=== PATIENT | male | born 1950 | race Caucasian/White ===

== ENCOUNTER 2016-12-20 17:05 | Inpatient (IN) | payer MEDICARE, OTHER ==
[~2016-12-20] VITALS: Ht 182.9 cm; Wt 71.8 kg
[~2016-12-20 17:05] MED LIST: ALBU18HF INH; ASPI-621 PO; ERGO500017 PO; FINA5TAB4 PO; MULT-750 PO; OXYC-229 PO; TAMS-11 PO
[2016-12-20 18:11] LABS: HEMOGLOBIN 13.7 g/dL (13.7-18.0)
[2016-12-20 18:22] LABS: BLOOD UREA NITROGEN 9 mg/dL (7-18)
[2016-12-20] MEDS ORDERED: PERMETHRIN CRM 5%, 60GM TP SCH (19:30)
[2016-12-20] MEDS ORDERED: PERMETHRIN CRM 5%, 60GM ONE (20:20)
[2016-12-20] MEDS ORDERED: LORazepam 2 MG/ML, 1ML IVPush PRN (20:30)
[2016-12-20] MEDS ORDERED: DOCUSATE 100 MG CAPSULE PO PRN (20:30)
[2016-12-20] MEDS ORDERED: LABETALOL 5MG/ML, 20ML IV PRN (20:30)
[2016-12-20] MEDS ORDERED: TRAZODONE 50MG TABLET PO PRN (20:30)
[2016-12-20] MEDS: ENOXAPARIN 40 MG/0.4 ML SQ SCH (20:30)
[2016-12-20] MEDS ORDERED: ACETAMINOPHEN 325 MG TABLET PO PRN (20:30)
[2016-12-20] MEDS ORDERED: POLYETHYLENE GLYCOL 17 GM PACKET PO PRN (20:30)
[2016-12-20] MEDS: NICOTINE 14MG/24 HR PATCH.TD24 TD SCH (20:30)
[2016-12-20] MEDS ORDERED: ONDANSETRON ODT 4 MG PO PRN (20:30)
[2016-12-20] MEDS ORDERED: BISACODYL 10 MG SUPP PR PRN (20:30)
[2016-12-20] MEDS ORDERED: cloniDINE 0.1MG PATCH TD SCH (20:30)
[2016-12-20] MEDS: GABAPENTIN 100 MG CAPSULE PO SCH (21:00)
[2016-12-20] MEDS: VALPROIC ACID 250 MG CAPSULE PO SCH (21:00)
[2016-12-20] MEDS ORDERED: PERMETHRIN CRM 5%, 60GM TP ONE (21:14)
[2016-12-20] MEDS ORDERED: FLU VACC QS2016-17 (36MOS+)UP/PF 0.5 ML IM-VACC ONE (22:30)
[2016-12-20] MEDS ORDERED: PNEUMOCOCCAL 23 VACCINE IM-VACC ONE (22:30)
[2016-12-20] MEDS: SODIUM CHLORIDE 0.9% 1,000 ML IV SCH (22:30)
[2016-12-20] MEDS: POTASSIUM CHLORIDE 20 MEQ, MAGNESIUM SULFATE 2 GM, THIAMINE 100 MG, MVI ADULT 10 ML, FO... IV SCH (23:47)
[2016-12-21 04:00] VITALS: BP 145/77
[2016-12-21] MEDS: SODIUM CHLORIDE 0.9% 1,000 ML IV SCH ×3 (04:03→20:03)
[2016-12-21] MEDS: ASPIRIN 81 MG TABLET EC PO SCH (05:26)
[2016-12-21 06:16] LABS: HEMOGLOBIN 13.9 g/dL (13.7-18.0)
[2016-12-21 06:28] LABS: BLOOD UREA NITROGEN 8 mg/dL (7-18)
[2016-12-21 06:42] LABS: ASPARTATE AMINO TRANSFERASE 18 U/L (15-37)
[2016-12-21 07:11] VITALS: BP 136/75
[2016-12-21] MEDS: FINASTERIDE 5 MG TABLET PO SCH (09:00)
[2016-12-21] MEDS: THIAMINE 100MG TABLET PO SCH (09:00)
[2016-12-21] MEDS: FOLIC ACID 1 MG TABLET PO SCH (09:42)
[2016-12-21] MEDS: GABAPENTIN 100 MG CAPSULE PO SCH ×3 (09:42→21:31)
[2016-12-21] MEDS: MULTIVITAMIN 1 TABLET PO SCH (09:42)
[2016-12-21] MEDS: VALPROIC ACID 250 MG CAPSULE PO SCH ×3 (09:43→21:31)
[2016-12-21] MEDS: TAMSULOSIN 0.4 MG CAP.ER.24H PO SCH (09:43)
[2016-12-21 14:00] VITALS: BP 130/71
[2016-12-21] MEDS: POTASSIUM CHLORIDE 20 MEQ, MAGNESIUM SULFATE 2 GM, THIAMINE 100 MG, MVI ADULT 10 ML, FO... IV SCH (20:03)
[2016-12-21 20:11] VITALS: BP 152/81
[2016-12-21] MEDS ORDERED: EPINEPHRINE SYRINGE 0.1 MG/ML, 10ML ONE (20:16)
[2016-12-21] MEDS ORDERED: CALCIUM CHLORIDE 10%, 10ML SYR ONE (20:16)
[2016-12-21] MEDS: NICOTINE 14MG/24 HR PATCH.TD24 TD SCH (20:30)
[2016-12-21] MEDS ORDERED: CODE BLUE RESPONSE XX ONE (20:30)
[2016-12-21] MEDS: MAGNESIUM OXIDE 400 MG TABLET PO SCH (21:31)
[2016-12-21] MEDS: ENOXAPARIN 40 MG/0.4 ML SQ SCH (21:31)
[2016-12-22 02:32] VITALS: BP 120/65
[2016-12-22] MEDS: SODIUM CHLORIDE 0.9% 1,000 ML IV SCH (04:03)
[2016-12-22] MEDS: ASPIRIN 81 MG TABLET EC PO SCH (05:25)
[2016-12-22 08:28] VITALS: BP 138/67
[2016-12-22] MEDS: MULTIVITAMIN 1 TABLET PO SCH (08:32)
[2016-12-22] MEDS: FINASTERIDE 5 MG TABLET PO SCH (08:33)
[2016-12-22] MEDS: THIAMINE 100MG TABLET PO SCH (08:33)
[2016-12-22] MEDS: FOLIC ACID 1 MG TABLET PO SCH (08:34)
[2016-12-22] MEDS: MAGNESIUM OXIDE 400 MG TABLET PO SCH (08:34)
[2016-12-22] MEDS: GABAPENTIN 100 MG CAPSULE PO SCH (08:34)
[2016-12-22] MEDS: VALPROIC ACID 250 MG CAPSULE PO SCH (08:34)
[2016-12-22] MEDS: TAMSULOSIN 0.4 MG CAP.ER.24H PO SCH (08:34)
[2016-12-22] MEDS ORDERED: FOLI-17 PO (11:01)
[2016-12-22] MEDS ORDERED: MAGN400T26 PO (11:01)
[2016-12-22] MEDS ORDERED: NICO1PAT4 TD (11:01)
[2016-12-22] MEDS ORDERED: THIA100T6 PO (11:01)
[2016-12-22] MEDS ORDERED: GABA100C8 PO (11:01)
[2016-12-22] MEDS ORDERED: EZET10TA3 PO (11:18)
[2016-12-22] MEDS ORDERED: PNEUMOCOCCAL 23 VACCINE IM-VACC ONE (11:30)
[2016-12-22] MEDS ORDERED: FLU VACC QS2016-17 (36MOS+)UP/PF 0.5 ML IM-VACC ONE (11:30)
[2016-12-22] MEDS ORDERED: EZETIMIBE 10 MG TABLET PO SCH (11:30)
[2016-12-23] MEDS ORDERED: ASPIRIN 81 MG TABLET EC PO SCH (06:00)
== END 2016-12-22 13:03 | disposition home or self-care (01) | DRG 896 ==
LOC: ED 19:17 → EDIP 19:18 → ED 20:46 → 3NE 21:36
PROVIDERS: ADMIT Internal Medicine; ATTEND Internal Medicine
PROC: HZ2ZZZZ Detoxification Services for Substance Abuse Treatment (ICD-10-PCS; principal; 2016-12-20)
DX: F10.229 Alcohol dependence with intoxication, unspecified (principal); G93.41 Metabolic encephalopathy; J44.9 Chronic obstructive pulmonary disease, unspecified; N40.0 Benign prostatic hyperplasia without lower urinary tract symptoms; F17.210 Nicotine dependence, cigarettes, uncomplicated; J06.9 Acute upper respiratory infection, unspecified; E88.09 Other disorders of plasma-protein metabolism, not elsewhere classified; E55.9 Vitamin D deficiency, unspecified; Y90.8 Blood alcohol level of 240 mg/100 ml or more; B88.8 Other specified infestations; Z23 Encounter for immunization; Z86.73 Personal history of transient ischemic attack (TIA), and cerebral infarction without residual deficits; Z88.0 Allergy status to penicillin; Z82.49 Family history of ischemic heart disease and other diseases of the circulatory system; Z59.0 Homelessness; F10.239 Alcohol dependence with withdrawal, unspecified; Z71.41 Alcohol abuse counseling and surveillance of alcoholic
CPT/HCPCS: 36415; 71010; 80048; 80053; 80307; 82040; 83036; 83735; 84439; 84443; 85025; 90686; 90732; 99285; J1650; J3411; J3475; J3480; J7042; J7030

== ENCOUNTER 2017-01-17 19:26 | Emergency (ER) | payer OTHER ==
[~2017-01-17] VITALS: Ht 190.5 cm; Wt 64.0 kg
[~2017-01-17 19:26] MED LIST changes: +EZET10TA3 PO; +FOLI-17 PO; +GABA100C8 PO; +MAGN400T26 PO; +NICO1PAT4 TD; +THIA100T6 PO
[2017-01-17 19:39] VITALS: BP 148/83
== END 2017-01-17 20:43 | disposition left against medical advice (07) ==
LOC: ED 19:42
DX: F10.129 Alcohol abuse with intoxication, unspecified (principal); F41.9 Anxiety disorder, unspecified; F19.94 Other psychoactive substance use, unspecified with psychoactive substance-induced mood disorder; J44.9 Chronic obstructive pulmonary disease, unspecified; Z86.73 Personal history of transient ischemic attack (TIA), and cerebral infarction without residual deficits
CPT/HCPCS: 99283

== ENCOUNTER 2017-01-17 20:47 | Emergency (ER) | payer OTHER | END 2017-01-17 20:57 | disposition left against medical advice (07) | LOC: ED 20:50 | DX: M25.559 Pain in unspecified hip (principal); Z53.21 Procedure and treatment not carried out due to patient leaving prior to being seen by health care provider ==

== ENCOUNTER 2018-07-23 14:14 | Emergency (ER) | payer MEDICARE, OTHER ==
[~2018-07-23] VITALS: Ht 193 cm; Wt 71.9 kg
[~2018-07-23 14:14] MED LIST changes: +EZET10TA18 PO; -EZET10TA3 PO; +GABA-826 PO; -GABA100C8 PO; +NICO-486 TD; -NICO1PAT4 TD; -OXYC-229 PO; +OXYC-307 PO; -THIA100T6 PO; +THIA100T67 PO
[2018-07-23 20:53] VITALS: BP 139/91
== END 2018-07-23 20:56 | disposition home or self-care (01) ==
LOC: ED 19:57
DX: J15.9 Unspecified bacterial pneumonia (principal); F10.220 Alcohol dependence with intoxication, uncomplicated; J44.9 Chronic obstructive pulmonary disease, unspecified; F17.200 Nicotine dependence, unspecified, uncomplicated; Z86.73 Personal history of transient ischemic attack (TIA), and cerebral infarction without residual deficits; Y90.9 Presence of alcohol in blood, level not specified
CPT/HCPCS: 71045; 99283

== ENCOUNTER 2019-01-13 21:09 | Inpatient (IN) | payer MEDICARE, OTHER ==
[~2019-01-13] VITALS: Ht 188 cm; Wt 72.6 kg
[~2019-01-13 21:09] MED LIST changes: -ASPI-621 PO; +ASPI81TA45 PO; +ENOXAPARIN 100 MG/ML SQ ONE
[2019-01-13] MEDS ORDERED: RIVA10TA2 PO (22:04)
--- NOTE | 2019-01-13 22:05 | NUR ---
STATES BILAT LEG SWELLING IN PAINx3 DAYS. DENIES ANY RECENT TRAUMA. STATES STOPPED TAKING WARFARINx3 WEEKS AGO FOR HX OF DVT.
[2019-01-13] MEDS ORDERED: OXYcodone/APAP 5/325MG TABLET ONE (22:15)
[2019-01-13] MEDS ORDERED: OXYcodone/APAP 5/325MG TABLET PO ONE (22:30)
[2019-01-13 23:30] LABS: BASOPHILS # (AUTO) 0.06 x10^3/uL (0-0.1); BASOPHILS % (AUTO) 1 % (0-1); EOSINOPHILS # (AUTO) 0.22 x10^3/uL (0-0.4); EOSINOPHILS % (AUTO) 4 % (1-7); LYMPHOCYTES # (AUTO) 1.16 x10^3/uL (1-3.4); LYMPHOCYTES % (AUTO) 21 % (22-44); MD NO; MEAN CORPUSCULAR HEMOGLOBIN 32.1 pg (27.5-34.5); MEAN CORPUSCULAR HGB CONC 33.6 g/dL (33.2-36.2); MEAN CORPUSCULAR VOLUME 95.8 fL (81-97); MEAN PLATELET VOLUME 7.6 fL (7.4-10.4); MONOCYTES # (AUTO) 0.42 x10^3/uL (0.2-0.8); MONOCYTES % (AUTO) 8 % (2-9); NEUTROPHILS # (AUTO) 3.75 x10^3/uL (1.8-6.8); NEUTROPHILS % (AUTO) 67 % (42-75); PLATELET COUNT 271 x10^3/uL (130-400); RED BLOOD COUNT 3.78 x10^6/uL (4.38-5.82); RED CELL DISTRIBUTION WIDTH 14.9 % (9.4-14.8)
[2019-01-13 23:38] LABS: ANION GAP 5 mmol/L (5-15); CALCIUM 8.3 mg/dL (8.5-10.1); CHLORIDE 112 mmol/L (98-107)
--- NOTE | 2019-01-13 23:38 | NUR ---
AWAITING ADMIT BED
[2019-01-13 23:44] LABS: CREATININE 0.94 mg/dL (0.7-1.3); INTERNATIONAL NORMALIZED RATIO 1.02 (0.93-1.1); PROTHROMBIN TIME 10.7 Seconds (9.6-11.5)
[2019-01-14] MEDS ORDERED: ENOXAPARIN 100 MG/ML ONE (00:03)
[2019-01-14] MEDS ORDERED: POTASSIUM CHLORIDE 20 MEQ TAB.ER.PRT PO ONE (00:30)
[2019-01-14] MEDS ORDERED: ACETAMINOPHEN 325 MG TABLET PO PRN (00:30)
[2019-01-14] MEDS ORDERED: BISACODYL 10 MG SUPP PR PRN (00:30)
[2019-01-14] MEDS ORDERED: POLYETHYLENE GLYCOL 17 GM PACKET PO PRN (00:30)
[2019-01-14] MEDS ORDERED: ONDANSETRON ODT 4 MG PO PRN (00:30)
[2019-01-14] MEDS ORDERED: NICOTINE 21 MG/24 HR PATCH.TD24 TD SCH (00:30)
[2019-01-14] MEDS ORDERED: WARFARIN MODERAT DOSE PROTOCOL XX PRN (00:30)
--- NOTE | 2019-01-14 01:09 | NUR ---
PT SLEEPING IN NAD VSS
--- NOTE | 2019-01-14 01:25 | NUR ---
REPORT TO GENO YOUNG TO FLOOR WITH TECH
[2019-01-14 02:11] VITALS: BP 127/78
[2019-01-14] MEDS ORDERED: HEPARIN MC SCH (03:00)
[2019-01-14 04:55] LABS: BASOPHILS # (AUTO) 0.05 x10^3/uL (0-0.1); BASOPHILS % (AUTO) 1 % (0-1); EOSINOPHILS # (AUTO) 0.32 x10^3/uL (0-0.4); EOSINOPHILS % (AUTO) 6 % (1-7); LYMPHOCYTES # (AUTO) 1.57 x10^3/uL (1-3.4); LYMPHOCYTES % (AUTO) 29 % (22-44); MD NO; MEAN CORPUSCULAR HEMOGLOBIN 32.5 pg (27.5-34.5); MEAN CORPUSCULAR HGB CONC 34.1 g/dL (33.2-36.2); MEAN CORPUSCULAR VOLUME 95.2 fL (81-97); MEAN PLATELET VOLUME 7.5 fL (7.4-10.4); MONOCYTES # (AUTO) 0.36 x10^3/uL (0.2-0.8); MONOCYTES % (AUTO) 7 % (2-9); NEUTROPHILS # (AUTO) 3.11 x10^3/uL (1.8-6.8); NEUTROPHILS % (AUTO) 58 % (42-75); PLATELET COUNT 256 x10^3/uL (130-400); RED BLOOD COUNT 3.92 x10^6/uL (4.38-5.82); RED CELL DISTRIBUTION WIDTH 14.4 % (9.4-14.8)
[2019-01-14 05:01] LABS: CHLORIDE 113 mmol/L (98-107)
[2019-01-14 05:07] LABS: ALANINE AMINOTRANSFERASE 16 U/L (12-78); ALBUMIN 2.7 g/dL (3.4-5.0); ALKALINE PHOSPHATASE 83 U/L (45-117); ANION GAP 5 mmol/L (5-15); BILIRUBIN,TOTAL 0.2 mg/dL (0.2-1.0); CALCIUM 8.1 mg/dL (8.5-10.1); CREATININE 0.88 mg/dL (0.7-1.3); TOTAL PROTEIN 5.4 g/dL (6.4-8.2)
[2019-01-14 05:21] LABS: INTERNATIONAL NORMALIZED RATIO 1.05 (0.93-1.1)
[2019-01-14 06:59] VITALS: BP 127/74
[2019-01-14] MEDS ORDERED: RIVAROXABAN 15 MG TABLET PO SCH ×2 (08:00→12:00)
[2019-01-14] MEDS ORDERED: POTASSIUM CHLORIDE 20 MEQ PACKET PO SCH (08:00)
[2019-01-14] MEDS ORDERED: TAMSULOSIN 0.4 MG CAP.ER.24H PO SCH (09:00)
[2019-01-14] MEDS ORDERED: SODIUM CHLORIDE FLUSH 10ML SYR IVF SCH (09:00)
[2019-01-14] MEDS ORDERED: SENNA/DOCUSATE TABLET PO SCH (09:00)
[2019-01-14] MEDS: KETOROLAC 30 MG/1 ML IV PRN ×2 (09:05→12:45)
[2019-01-14] MEDS ORDERED: HEPARIN 25,000 UNITS/500ML PMX 500 ML IV PRN (12:00)
[2019-01-14] MEDS ORDERED: HEPARIN 5,000 UNITS/ML, 1ML IV ONE (12:00)
[2019-01-14] MEDS ORDERED: HEPARIN 5,000 UNITS/ML, 1ML IV PRN (12:00)
[2019-01-14 12:36] VITALS: BP 131/82
[2019-01-14] MEDS ORDERED: APIX5TAB PO ×3 (13:39→14:01)
[2019-01-14] MEDS ORDERED: POTA20PA25 PO (13:39)
[2019-01-14] MEDS ORDERED: APIXABAN 5 MG TABLET PO SCH (21:00)
== END 2019-01-14 15:30 | disposition home or self-care (01) | DRG 300 ==
LOC: ED 22:33 → EDIP 01-14 → 3NE 01-14 01:55 → DCLOUNGE 01-14 15:30
PROVIDERS: ADMIT Internal Medicine; ATTEND Internal Medicine
DX: I82.412 Acute embolism and thrombosis of left femoral vein (principal); E44.1 Mild protein-calorie malnutrition; D64.9 Anemia, unspecified; E87.6 Hypokalemia; F17.210 Nicotine dependence, cigarettes, uncomplicated; J44.9 Chronic obstructive pulmonary disease, unspecified; N40.1 Benign prostatic hyperplasia with lower urinary tract symptoms; R33.8 Other retention of urine; R00.0 Tachycardia, unspecified; Z79.01 Long term (current) use of anticoagulants; Z86.73 Personal history of transient ischemic attack (TIA), and cerebral infarction without residual deficits; Z91.14 Patient's other noncompliance with medication regimen; Z68.20 Body mass index [BMI] 20.0-20.9, adult
CPT/HCPCS: 36415; 80048; 80053; 82040; 83880; 85025; 85520; 85610; 85730; 93970; 96372; 99285; J1650; J1885

== ENCOUNTER 2019-04-17 18:18 | Emergency (ER) | payer OTHER ==
[~2019-04-17] VITALS: Ht 182.9 cm; Wt 73.0 kg
[2019-04-17 20:54] VITALS: BP 135/82
== END 2019-04-17 21:02 | disposition home or self-care (01) ==
LOC: ED 18:29
DX: H81.399 Other peripheral vertigo, unspecified ear (principal); H81.13 Benign paroxysmal vertigo, bilateral; J44.9 Chronic obstructive pulmonary disease, unspecified; F17.200 Nicotine dependence, unspecified, uncomplicated; Z86.73 Personal history of transient ischemic attack (TIA), and cerebral infarction without residual deficits; Z86.718 Personal history of other venous thrombosis and embolism
CPT/HCPCS: 36415; 70450; 71045; 80048; 81001; 82040; 84484; 85025; 87086; 93005; 99284